=== PATIENT | male | born 1945 | race Caucasian/White ===

== ENCOUNTER 2024-01-15 12:20 | Emergency (ER) | payer OTHER ==
[~2024-01-15] VITALS: Ht 177.8 cm; Wt 95.3 kg
[2024-01-15 12:42] VITALS: BP_SYST 110; PULSE 78; RESP 15; TEMP 97.9; O2SAT 96
[2024-01-15 13:26] LABS: BASOPHILS % (AUTO) 0.5 % (0.0-2.0); EOSINOPHILS # (AUTO) 0.1 K/uL (0.0-0.4); HEMATOCRIT 26.4 % (36-54); HEMOGLOBIN 8.8 g/dL (14.0-18.0); LYMPHOCYTES # (AUTO) 0.8 K/uL (1.0-5.5); LYMPHOCYTES % (AUTO) 15.4 % (20.5-51.5); MEAN CORPUSCULAR HEMOGLOBIN 37 pg (27-31); MEAN CORPUSCULAR HGB CONC 33 % (32-36); MEAN CORPUSCULAR VOLUME 112 fL (79.0-98.0); MONOCYTES # (AUTO) 0.9 K/uL (0.0-1.0); MONOCYTES % (AUTO) 17.7 % (1.7-9.3); NEUTROPHILS # (AUTO) 3.2 K/uL (1.8-7.7); NEUTROPHILS % (AUTO) 65.4 % (40.0-70.0); PLATELET COUNT (AUTO) 188 K/uL (130-430); RED BLOOD CELL COUNT(AUTO) 2.36 MIL/uL (4.2-6.2); RED CELL DISTRIBUTION WIDTH 20.7 % (9.0-15.0); WHITE BLOOD COUNT (AUTO) 4.9 K/uL (4.8-10.8)
[2024-01-15 13:45] LABS: ANION GAP 6 (5-15); CARBON DIOXIDE 29 mmol/L (23-29); CHLORIDE 106 mmol/L (98-107); CREATININE 0.83 mg/dL (0.55-1.30); GLUCOSE 141 mg/dL (74-106); POTASSIUM 4.1 mmol/L (3.5-5.1); SODIUM SERUM 141 mmol/L (136-145); UREA NITROGEN, BLOOD 15 mg/dL (8-21)
[2024-01-15 14:21] LABS: BILIRUBIN,URINE NEGATIVE (NEGATIVE); BLOOD, URINE 1+ (NEGATIVE); CLARITY/URINE CLEAR (CLEAR); COLOR,URINE YELLOW (YELLOW); GLUCOSE,URINE NEGATIVE (NEGATIVE); KETONES,URINE NEGATIVE (NEGATIVE); LEUKOCYTE ESTERASE ,URINE NEGATIVE (NEGATIVE); NITRITE, URINE NEGATIVE (NEGATIVE); PROTEIN URINE NEGATIVE (NEGATIVE); UROBILINOGEN,URINE 0.2 (0.2-1.0)
[2024-01-15 14:45] LABS: ANISOCYTOSIS 1+
[2024-01-15 14:59] LABS: BACTERIA,URINE None Seen /HPF (None Seen); WBC,URINE NONE SEEN /HPF (0-3)
[2024-01-15] MEDS: LOSARTAN POTASSIUM 25 MG TABLET PO ONE (19:59)
[2024-01-15] MEDS: amLODIPine BESYLATE 10 MG TABLET PO ONE (20:45)
[2024-01-15] MEDS: hydrALAZINE HCL 20 MG/ML VIAL IVP ONE (21:45)
[2024-01-15 22:58] VITALS: BP_SYST 157; PULSE 18; RESP 20; TEMP 98.2; O2SAT 98
[2024-01-15] MEDS: LABETALOL HCL 20 MG/4 ML CARTRIDGE IVP ONE (23:00)
== END 2024-01-15 22:58 | disposition home or self-care (01) ==
LOC: SED 12:20
DX: D64.9 Anemia, unspecified (principal); R53.1 Weakness; I10 Essential (primary) hypertension; E78.5 Hyperlipidemia, unspecified; Z98.890 Other specified postprocedural states
CPT/HCPCS: 99291; 36430; 96374; 80048; 81000; 81001; 83880; 85025; 86886; 86900; 86901; 84484; 86920; 36415; 93005; 81015; P9021; J0360